=== PATIENT | female | born 1995 | race Caucasian/White ===

== ENCOUNTER 2022-05-10 11:57 | Outpatient (CLI) | payer OTHER | END 2022-05-10 12:53 | disposition home or self-care (01) | LOC: NST 11:57 | PROVIDERS: ATTEND Obstetrics & Gynecology Gynecology | DX: Z34.83 Encounter for supervision of other normal pregnancy, third trimester (principal) ==

== ENCOUNTER 2022-05-31 00:03 | Inpatient (IN) | payer OTHER ==
[~2022-05-31] VITALS: Ht 157.5 cm; Wt 76.2 kg
== END 2022-06-02 11:09 | disposition home or self-care (01) | DRG 776 ==
LOC: OBS/DEL 00:03 → LDR 07:48 → OB/GYN 16:58
PROVIDERS: ADMIT Obstetrics & Gynecology Gynecology; ATTEND Obstetrics & Gynecology Gynecology
DX: O14.15 Severe pre-eclampsia, complicating the puerperium (principal); Z20.822 Contact with and (suspected) exposure to COVID-19